=== PATIENT | male | born 1950 | race Caucasian/White ===

== ENCOUNTER 2017-05-19 06:24 | Inpatient (IN) ==
[~2017-05-19 06:24] MED LIST: Vancomycin 1,000 MG, Sodium Chloride IRRigation 1,000 ML IR ONE
[2017-05-19] MEDS ORDERED: Albuterol 2.5 MG/3 ML NEBULIZER IH ONE ×2 (06:42→12:34)
[2017-05-19] MEDS ORDERED: CeFAZolin Syr 2,000MG/20 ML 2,000 MG/20 ML SYRINGE IVPB ONE ×2 (06:42→06:53)
[2017-05-19] MEDS ORDERED: Plasma-Lyte A (PH 7.4) 1,000 ML IVC SCH ×2 (06:45→12:45)
--- NOTE | 2017-05-19 06:57 | Anesthesia Evaluation PreOp ---
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 ) Anesthesia History: No Prior Anesthetic Complications, Past Anesthesia ( arthroscopy, bilateral knees, ORIF left hand, biopsy of spleen, inguinal hernia bilateral, bronchoscopy) Alcohol Use: rarely Drug use: none Medications and Allergies Colchicine [Colcrys] 0.6 mg PO AD 03/21/15 [History] Cyclobenzaprine [Flexeril] 5 mg PO Q8H PRN 03/21/15 [History] Ibuprofen [Motrin] 800 mg PO AD PRN 03/21/15 [History] Indomethacin [Indocin] 50 mg PO TID 03/21/15 [History] Lisinopril [Zestril] 40 mg PO DAILY 03/21/15 [History] Omeprazole [PriLOSEC] 40 mg PO DAILY 03/21/15 [History] Pravastatin Sodium [Pravachol] 20 mg PO DAILY 03/21/15 [History] Spironolactone [Aldactone] 50 mg PO DAILY PRN 03/21/15 [History] Zolpidem [Ambien] 5 mg PO HS PRN 03/21/15 [History] Allopurinol [Zyloprim 300 MG] 300 mg PO HS #30 tablet 09/16/15 [Rx] OxyCODONE/APAP 7.5/325 [Percocet 7.5/325 MG] 1 each PO TID 09/21/16 [History] 3 Allergy/AdvReac Type Severity Reaction Status Date / Time No Known Allergies Allergy Verified 05/10/17 15:36 - Meds/Allergy Pre-op Review Medications Reviewed: Yes Allergies Reviewed: Yes Beta Blockers on Current Med List: Yes If Beta Blockers taken, Date/Time (Last Dose taken): today 514 Anesthesia Results - Labs Laboratory Tests 05/02/17 05/16/17 07:51 16:30 Hgb 13.8 Hct 42.9 Plt Count 184 Sodium 137 Potassium 3.5 BUN 12 Creatinine 1.15 - Imaging Additional studies: stress: Impression: Pharmacologic stress ECG is negative for ischemia at level of heart rate achieved. Gated EF = 72%. Small sized, mild intensity, fixed basal inferior defect consistent with artifact. Pefusion imaging was negative for ischemia or prior infarct. Anesthesia Exam Selected Entries 05/19/17 06:41 Temperature 98.0 F Pulse Rate 66 Respiratory Rate 18 Blood Pressure 148/95 O2 Sat by Pulse Oximetry 96 Weight: 114kg NPO (# of Hours): 8 - HEENT Pupil (Motor): EOMI Mallampati: III Teeth: Edentulous Oral Opening: Less than or equal to 3 - COMPONENT TECHNICIAN LOC: Oriented COMPONENT TECHNICIAN Motor: Normal RUE, Normal LUE, Normal RLE, Normal LLE, Normal Face COMPONENT TECHNICIAN Sensory: Normal: RUE, LUE, RLE, LLE, Face - Cardiac Rhythm: Regular Murmur: None - Pulmonary Breath Sounds: bilateral Clear Respiratory Effort: Symmetrical Anesthesia Assess/Plan ASA Score: 3 Modified Sameer Scale for Level of Consciousness: Cooperative, oriented, and tranquil Anesthetic Plan: General Monitoring Plan: Standard Monitors, A-Line Recovery Plan: PACU (agrees to GA and a-line)
[2017-05-19] MEDS ORDERED: Heparin 1,000 UNITS/500 mL 500 ML ONE (07:09)
[2017-05-19] MEDS ORDERED: Heparin 1,000 UNITS/500 mL 1,500 ML ONE (07:09)
[2017-05-19] MEDS ORDERED: Vancomycin 1,000 MG VIAL ONE (07:09)
[2017-05-19] MEDS ORDERED: *HR* Phenylephrine 10 MG/ML VIAL ONE (07:15)
[2017-05-19] MEDS ORDERED: Lidocaine -MPF 2% 2 ML VIAL ONE ×2 (07:19→09:41)
[2017-05-19] MEDS ORDERED: *HR* Midazolam HCl 2 MG/2 ML VIAL ONE (07:19)
[2017-05-19] MEDS ORDERED: *HR* Propofol 200 MG/20 ML VIAL IVP ONE (07:19)
[2017-05-19] MEDS ORDERED: Dexamethasone 4 MG/ML VIAL ONE (07:19)
[2017-05-19] MEDS ORDERED: Ondansetron 4 MG/2 ML VIAL ONE (07:19)
[2017-05-19] MEDS ORDERED: *HR* Rocuronium Bromide 50 MG/5 ML VIAL ONE (07:19)
[2017-05-19] MEDS ORDERED: *HR* FentaNYL (PF) 100 MCG/2 ML VIAL ONE (07:19)
[2017-05-19] MEDS ORDERED: Isovue-300 150 ML INFUS..BTL IV ONE (07:27)
[2017-05-19] MEDS ORDERED: *HR* Remifentanil 2 MG VIAL IVP ONE (07:28)
--- NOTE | 2017-05-19 07:31 | History & Physical Report ---
Date of Encounter: 05/19/17 Time of Encounter: 07:25 24 Hour HP Update - Instructions Instructions: If the History and Physical is less than 30 days old and was completed prior to A.M. admission and or procedure and has NOT been updated on calendar day of procedure please complete this update prior to performing procedure. - Update Patient reports changes in Medical Condition: No Changes in examination, assessment, or condition: No Changes in Medication: No Preop tests/diagnostics Reviewed: Yes Surgery Remains Indicated: Yes Consent for Planned Operative Procedure(s) Verified: Yes - Pre-Operative Checklist Preoperative Checklist Indicated: Yes Prophylactic Antibiotic Ordered: Yes (vancomycin due to MRSA risk) Home Medications Include Beta Steve: Yes Beta Steve Taken Today (Day of Surgery): Yes Beta Steve Taken Yesterday (Day Prior to Surgery): Yes Is VTE Prophylaxis Indicated?: Yes
[2017-05-19] MEDS ORDERED: *HR* Succinylcholine 200 MG/10 ML VIAL IVP ONE (09:18)
[2017-05-19] MEDS ORDERED: EPHEDrine 50 MG/ML VIAL ONE (10:33)
[2017-05-19] MEDS ORDERED: *HR* Heparin 5,000 UNIT/ML VIAL ONE (10:55)
[2017-05-19] MEDS ORDERED: Heparin 1,000 UNITS/500 mL 1,000 ML ONE (11:12)
[2017-05-19] MEDS ORDERED: Neostigmine Methylsulfate 3 MG/3 ML SYRINGE ONE (12:06)
[2017-05-19] MEDS ORDERED: *HR* OxyCODONE/APAP 5/325 TABLET PO PRN (12:34)
[2017-05-19] MEDS ORDERED: *HR* Meperidine 25 MG/ML SYRINGE IVP PRN (12:34)
[2017-05-19] MEDS ORDERED: MORPHINE SUL Oral CONC 10 MG/0.5 ML ORAL.SYG SL PRN (12:34)
[2017-05-19] MEDS ORDERED: *HR* Promethazine 25 MG/ML VIAL IVP PRN (12:34)
[2017-05-19] MEDS ORDERED: Naloxone 0.4 MG/ML INJ IVP PRN ×2 (12:34→13:29)
[2017-05-19] MEDS ORDERED: *HR* OxyCODONE Immed Rel 5 MG TABLET PO PRN ×2 (12:34→13:29)
[2017-05-19] MEDS ORDERED: Ondansetron 4 MG/2 ML VIAL IVP ONE (12:34)
[2017-05-19] MEDS ORDERED: *HR* Labetalol 20 MG/4 ML SYRINGE IVP PRN ×2 (12:36→13:29)
--- NOTE | 2017-05-19 12:40 | Operative Note ---
Date of procedure: 05/19/17 Pre-op diagnosis: Abdominal Aortic Aneurysm Post-op diagnosis: same Procedure: 1. Introduction of catheter into the aorta via right common femoral artery. 2. Introduction of catheter into the aorta via left common femoral artery. 3. Right femoral vessel exposure for endograft placement. 4. Left femoral vessel exposure for endograft placement. 5. Endograft repair of abdominal aortic aneurysm with Cook Zenith graft and two docking limbs including radiologic supervision and interpretation. Complications: None Anesthesia: GETA Surgeon: Tello Lainez Was there an program services assistant present: Yes Director Cardiac: Ishan Valente Estimated blood loss (cc): 100 Specimen: None Condition: stable Disposition: PACU Procedure in Detail: Indications: The patient is a 66 year old male with a history of hypertension and hyperlipidemia. He was found to have an infrarenal abdominal aortic aneurysm. His anatomy is acceptable for endograft placement. Surgery is recommended to reduce his risk of rupture. Procedure: The patient was identified, brought to the operating room and placed in the supine position on the operating room table. After induction of general endotracheal anesthesia, the patient was cleaned and draped in normal sterile fashion. Oblique incisions were made over both groins sharply. Hemostasis was obtained with electrocautery. Using blunt and sharp and electrocautery dissection, the bilateral common, deep and superficial femoral arteries were dissected circumferentially and surrounded with Vesseloops. At this point, the patient received 5000 units of heparin intravenously and then bilateral femoral punctures with large-bore needles were performed. Bentson wires were advanced into the aorta under fluoroscopic view. Given the anatomy, the main body was selected to be the right side of the patient. The needles were exchanged for bilateral #8-Divehi sheaths and a long Pigtail catheter was advanced over the right wire into the aortic arch. The wire was replaced with a Lunderquist wire. The catheter was removed and repositioned in the suprarenal aorta via the left femoral artery. The main body was inserted over the Lunderquist wire with the contralateral limb being in the anterolateral position. An aortogram was then performed at the level of the renal artery. The graft was positioned just inferior to the renal arteries and the first 2 segments were deployed. Again an aortogram revealed adequate infrarenal placement. The graft was then further opened to the contralateral limb exposed. A final angiogram was performed confirming adequate infrarenal placement. The suprarenal stent was deployed in the usual fashion. The contralateral limb was then selected with a Bentson wire using a guiding catheter. Intragraft placement of the wire was confirmed by placing the pigtail and spinning it freely as well as injecting a small amount of contrast. An oblique view of the pelvis was performed with contrast to size the left extension limb. The left sheath was exchanged for the extension limb which was advanced under fluoroscopic view and positioned. It was then deployed. The introducer was removed. The remaining portion of the main body was deployed, the top cap was retrieved and the introducer was removed. An oblique view of the right pelvis was performed in a similar fashion to determine the length of the graft on the right. The graft extension was then advanced on the right and positioned in the usual fashion. Upon completion of the graft docking limb extension, a Coda balloon was then advanced into the graft proximal and distal endpoints as well as overlap were expanded with gentle pressure. The balloon was left in the suprarenal position and a Flush catheter was placed in the suprarenal aorta. A Flush completion angiogram revealed no evidence of an endoleak. Tension was applied to the Vesseloops in the groin. The bilateral sheaths were then removed. After confirming hemodynamic stability, the wires were then removed. The bilateral arteriotomies were repaired with a running 6-0 Prolene. Antibiotic irrigation was infused into the groin. Platelet rich and platelet poor plasma were infused into the incisions. The bilateral groins were closed with a single layer of 2-0 Vicryl followed by two layers of 3-0 Vicryl followed by a layer of 3-0 monocryl in the subcuticular layer. Sterile dressings were applied. The patient was then extubated and taken to the recovery room in stable condition. Device Sizes: 1. Main Body: [id number] 2. Left Limb: [id number] 2. Right Limb: [id number]
--- NOTE | 2017-05-19 13:21 | Anesthesia Evaluation Post Op ---
Date of Encounter: 05/19/17 Time of Encounter: 13:20 - Vital Signs Vital Signs: Vital Signs/O2 Sat, Most Current Temp Pulse Resp BP Pulse Ox 97.0 F L 55 16 137/88 95 05/19/17 13:01 05/19/17 13:11 05/19/17 13:11 05/19/17 13:11 05/19/17 13:11 - Lungs Lungs: Clear Ascult./Percussion - Airway Airway: Non-obstructed - Cardiovascular Regular Rate - Mental Status Mental Status: Alert & Oriented, Answers Appropriately - Pain Pain Scale: 3 Pain Scale used: Numeric (1 - 10) - Nausea Vomiting Nausea Vomiting: Not Present - Hydration Hydration: Tolerates oral liquids, Winchester catheter
[2017-05-19] MEDS ORDERED: Diclofenac Sodium 75 MG TABLET PO PRN (13:29)
[2017-05-19] MEDS ORDERED: *HR* HYDROcodone/Acet 5/325 mg TABLET PO PRN (13:29)
[2017-05-19] MEDS ORDERED: Acetaminophen 325 MG TABLET PO PRN (13:29)
[2017-05-19] MEDS ORDERED: 0.9 % Sodium Chloride 1,000 ML IVC SCH (13:29)
[2017-05-19] MEDS ORDERED: OXYCODONE Oral CONC 10 MG/0.5 ML ORAL.SYG SL PRN ×2 (13:29)
[2017-05-19] MEDS ORDERED: Ondansetron 4 MG/2 ML VIAL IVP PRN (13:29)
--- NOTE | 2017-05-19 14:16 | Operative Note ---
Date of procedure: 05/19/17 Pre-op diagnosis: Abdominal aortic aneurysm Post-op diagnosis: same Procedure: Endovascular repair of abdominal aortic aneurysm using Zenith Cook endovascular graft. The graft has 2 docking limb for a total of 3 component repair. Abdominal aortograms Bilateral femoral artery open exposure. Complications: None Anesthesia: GETA Surgeon: Tello Lainez Co-Surgeon: Ishan Valente Was there an assistant chief train dispatcher present: No Estimated blood loss (cc): 100 Specimen: None Condition: stable Disposition: PACU Procedure in Detail: History Mr. Dillon is a 66-year-old white male with an abdominal aortic aneurysm. The aneurysm has grown in size and it is propria to proceed now with endovascular repair. Procedure After informed consent was obtained the patient was taken to the operating room. General endotracheal anesthesia was established under arterial line pressure monitoring. The abdomen groin and upper thighs were sterilely prepped and draped. A timeout protocol was observed. The femoral arteries were then dissected simultaneously through oblique groin incisions. Dissection was carried down to reveal the common femoral artery which was then controlled with Vesseloops. 18-gauge needles were used to puncture the artery retrograde. The wire was inserted followed by an 8-Nauruan sheath and dilator. The dilator was removed and the sheath was aspirated and flushed. The marker pigtail catheter was placed up the right side and exchanged for the Lunderquist wire. The pigtail catheter was then placed up on the left side. The main body was selected and was a 28 x 125 mm Zenith device. This was placed via the right side. The suprarenal stent was placed and then the main body was opened to the point that the left-sided document limb was exposed. Attention was then directed to cannulating this left side. Appropriate maneuvers were performed to ensure correct placement. After this was done the left-sided component was placed and this was a 16 x 74 mm stent graft. After this was secured in position and attention was directed back to the right side. The deployment of the right side was completed. Then an Janki Rich was obtained to measure the length and location of the iliac bifurcation. A 16 x 90 device was then selected and placed on the right side. Following placement of that third component a Rojas balloon was inserted that was 32 mm in diameter and was gently inflated through the course of the endovascular stent graft to gently molded and expand the material to its appropriate diameter. With that done the pigtail catheter was reinserted and a formal aortogram was obtained. This demonstrated no endoleak's. The position of the graft was appropriate and preservation of both renal arteries and both iliac bifurcations was identified. With this done the sheaths were then removed. The puncture site at the femoral level were was closed using 6-0 Prolene suture. The clamps removed and pulsatile flow was restored to the lower extremities. Excellent Doppler signals and palpation of pulses were noted. The wound was irrigated and closed bilaterally with absorbable suture. Dry sterile dressings were applied. The patient was stable and was taken from the operating room to the recovery room in normal hemodynamic status.
[2017-05-19] MEDS: CeFAZolin Premix DUPLEX 2,000 MG/50 ML BAG IVPB SCH ×2 (15:32→23:57)
[2017-05-19] MEDS: *HR* Metoprolol 5 MG/5 ML VIAL IVP SCH ×2 (18:35→23:56)
[2017-05-19] MEDS: Ketorolac 15 MG/ML VIAL IVP SCH ×2 (18:36→23:56)
[2017-05-19] MEDS ORDERED: Mirtazapine 15 MG TABLET PO SCH (21:00)
[2017-05-20 04:17] LABS: BUN/Creatinine Ratio 10 (6-26); Blood Urea Nitrogen 11 mg/dL (8-23); Calcium 8.4 mg/dL (8.6-10.3); Carbon Dioxide 23 mEq/L (23-29); Chloride 106 mEq/L (98-107); Glucose 133 mg/dL (70-105); Osmolality,Calculated 285 (280-300); Potassium 3.6 mEq/L (3.5-5.1); Sodium 137 mEq/L (136-145); eGFR For African Americans > 60 (> 60); eGFR For Non-African Americans > 60 (> 60)
[2017-05-20 04:50] LABS: Basophils % 0.4 %; Hematocrit 36.1 % (37.5-50.1); Hemoglobin 11.7 g/dL (12.9-16.9); Immature Granulocytes % 0.3 % (0-4); Lymphocytes # 1.2 K/mcL (0.6-4.6); Lymphocytes % 12.5 %; Mean Corpuscular HGB Conc 32.4 g/dL (31.6-35.5); Mean Corpuscular Hemoglobin 29.5 pg (28.0-33.3); Mean Corpuscular Volume 91.2 fL (83.0-100.0); Mean Platelet Volume 9.5 fL (9.4-12.4); Monocytes # 0.9 K/mcL (0.0-1.3); Monocytes % 8.7 %; Neutrophils # 7.6 K/mcL (1.6-8.9); Platelet Count 140 K/mcL (140-400); Red Blood Count 3.96 M/mcL (4.19-5.50); Red Cell Distribution Width 13.2 % (11.5-14.5); Segmented Neutrophils % 78.1 %
[2017-05-20] MEDS: *HR* Metoprolol 5 MG/5 ML VIAL IVP SCH (05:51)
[2017-05-20] MEDS: Ketorolac 15 MG/ML VIAL IVP SCH ×2 (05:51→12:01)
[2017-05-20] MEDS ORDERED: *HR* Heparin 5,000 UNIT/ML VIAL SQ SCH ×2 (06:00)
--- NOTE | 2017-05-20 07:41 | Discharge Summary ---
Orders not resulted at time of discharge: Pending orders 05/18/17 13:40 Red Blood Cells [BBK] Routine Date of Encounter: 05/20/17 Time of Encounter: 07:40 - Discharge Diagnosis (1) AAA (abdominal aortic aneurysm) without rupture Priority: Primary Status: Chronic Comments: The patient is postoperative day #1 after endograft repair of his aneurysm. He is tolerating a diet. His incisions are healing and his pain is controlled. He will be discharged today. (2) Essential hypertension Priority: Secondary Status: Chronic (3) Mixed hyperlipidemia Priority: Secondary Status: Chronic (4) Acute blood loss anemia Priority: Secondary Status: Acute Comments: The patient has acute expected postoperative blood loss anemia. He is hemodynamically stable without evidence of ongoing blood loss. (5) Diffuse large B cell lymphoma Priority: Secondary Status: Chronic Qualifiers: Lymphoma site: unspecified region Qualified Code(s): C83.30 - Diffuse large B-cell lymphoma, unspecified site - Hospital Course Hospital course: Mr. Dillon is a 66 year old male admitted with an abdominal aortic aneurysm on . He underwent endograft repair of his aneurysm. He tolerated the procedure well and was discharged in stable condition on postoperative day #1 without complications. - Time Spent with Patient Total time spent providing and/or coordinating discharge services: - Discharge Medications Prescriptions: OxyCODONE/APAP 5/325 [Percocet 5/325 MG] 1 each PO Q6HR PRN 6 Days #24 tablet PRN Reason: POSTOPERATIVE PAIN Home Medications: Allopurinol [Zyloprim 100 MG] 100 mg PO DAILY 05/19/17 [History] Citalopram [CeleXA] 20 mg PO DAILY 05/19/17 [History] Cyclobenzaprine HCl 5 mg PO TID PRN 05/19/17 [History] Diclofenac Sodium [Voltaren] 75 mg PO BID PRN 05/19/17 [History] Ibuprofen 800 mg PO TID PRN 05/19/17 [History] Lisinopril [Zestril] 40 mg PO DAILY 05/19/17 [History] Metoprolol [Lopressor] 100 mg PO BID 05/19/17 [History] Mirtazapine 7.5 mg PO HS 05/19/17 [History] Omeprazole [PriLOSEC] 40 mg PO DAILY 05/19/17 [History] Pravastatin Sodium [Pravachol] 40 mg PO DAILY 05/19/17 [History] OxyCODONE/APAP 5/325 [Percocet 5/325 MG] 1 each PO Q6HR PRN 6 Days #24 tablet [Rx] Allergies/Adverse Reactions: 3 Allergy/AdvReac Type Severity Reaction Status Date / Time No Known Allergies Allergy Verified 05/19/17 07:21 Date of admission: 05/19/17 13:23 Primary care physician: Hafsa Lua CNP Procedure(s) Performed: Endograft repair of abdominal aortic aneurysm. Discharging clinician: Tello Lainez Anticipated date of discharge: 05/20/17 Exam Vital Signs, Last 4 Hours Temp Pulse Resp BP Pulse Ox 05/20/17 07:01 97.7 F 64 20 128/94 95 05/20/17 04:10 64 05/20/17 03:44 97.5 F L 74 20 146/91 95 General: Present: Conversant Cardiac: Present: Reg Rate and Rhythm Lungs: Present: Normal Breath Sounds Neuro: Present: No focal deficits noted Abdomen: Present: Soft, Non-tender. Absent: Masses Vascular: Present: Normal capillary refill, Pulse, normal, Surgical incisions ( no erythema, no drainage, no hematoma). Absent: Cyanosis, Edema Skin: Present: No rashes noted on visualized skin - Patient Status Disposition: Home, Self-Care Condition: Good Functional capacity at discharge: independent ambulation Overall status at discharge: patient is back to baseline - Discharge Instructions Instructions: Oxycodone/Acetaminophen (By mouth), Abdominal Aortic Aneurysm (DC ), Peripheral Vascular Disorders (DC) Follow Up With: Hafsa Lua CNP [Primary Care Provider] - 05/27/17 11:40 am Tello Lainez MD [Partnered Physician] - 06/28/17 1:10 pm Additional Instructions: MAY REMOVE BANDAGES AND SHOWER ON 05/21/17. NO TUB BATHS OR SWIMMING UNTIL 06/13/17. WASH WOUNDS GENTLY AND PAT TO DRY. APPLY DRY GAUZE TO GROIN WOUND DAILY FOR [address] LAINEZ AT [phone] WITH QUESTIONS OR CONCERNS. - Diet and Activity Activity: increase activity as tolerated Diet: advance to your usual diet - VTE Documentation of Mechanical Device: Intermittent pneumatic compression device
[2017-05-20] MEDS ORDERED: Metoprolol 100 MG TABLET PO SCH (09:00)
[2017-05-20] MEDS ORDERED: Lisinopril 20 MG TABLET PO SCH (09:00)
[2017-05-20 11:13] VITALS: BP 143/94
== END 2017-05-20 13:09 | disposition home or self-care (01) | DRG 269 ==
LOC: SAMDAY 06:24 → 2NNU 13:23
PROVIDERS: ADMIT Surgery; ATTEND Surgery

== ENCOUNTER 2018-09-18 17:36 | Inpatient (IN) ==
[2018-09-18] MEDS ORDERED: 0.9 % Sodium Chloride 1,000 ML IVC ONE (18:25)
[2018-09-18 19:08] LABS: Basophils % 0.4 %; Eosinophils # 0.2 K/mcL (0.0-0.6); Hematocrit 27.3 % (37.5-50.1); Hemoglobin 8.4 g/dL (12.9-16.9); Immature Granulocytes % 0.4 % (0-4); Lymphocytes # 0.4 K/mcL (0.6-4.6); Mean Corpuscular HGB Conc 30.8 g/dL (31.6-35.5); Mean Corpuscular Hemoglobin 27.8 pg (28.0-33.3); Mean Corpuscular Volume 90.4 fL (83.0-100.0); Mean Platelet Volume 9.6 fL (9.4-12.4); Monocytes # 0.9 K/mcL (0.0-1.3); Monocytes % 10.9 %; Neutrophils # 6.8 K/mcL (1.6-8.9); Platelet Count 286 K/mcL (140-400); Red Blood Count 3.02 M/mcL (4.19-5.50); Red Cell Distribution Width 15.7 % (11.5-14.5); Segmented Neutrophils % 81.3 %; White Blood Count 8.3 K/mcL (4.3-11.1)
[2018-09-18] MEDS ORDERED: Isovue-370 500 ML BOTTLE IVP ONE (19:12)
[2018-09-18 19:32] LABS: Troponin I 0.06 ng/mL (< 0.04)
[2018-09-18 19:38] LABS: BUN/Creatinine Ratio 15 (6-26); Blood Urea Nitrogen 15 mg/dL (8-23); Calcium 9.4 mg/dL (8.6-10.3); Carbon Dioxide 25 mEq/L (23-29); Chloride 96 mEq/L (98-107); Glucose 125 mg/dL (70-105); Osmolality,Calculated 278 (280-300); Potassium 3.8 mEq/L (3.5-5.1); Sodium 133 mEq/L (136-145); eGFR For African Americans > 60 (> 60); eGFR For Non-African Americans > 60 (> 60)
[2018-09-18] MEDS ORDERED: Naloxone 0.4 MG/ML INJ IVP PRN (22:55)
[2018-09-18] MEDS ORDERED: 0.9 % Sodium Chloride 1,000 ML IVC SCH (23:00)
[2018-09-19] MEDS ORDERED: *HR* OxyCODONE Immed Rel 5 MG TABLET PO ONE (01:13)
[2018-09-19 01:17] LABS: Hematocrit 26.4 % (37.5-50.1); Hemoglobin 8.1 g/dL (12.9-16.9); Mean Corpuscular HGB Conc 30.7 g/dL (31.6-35.5); Mean Corpuscular Hemoglobin 27.6 pg (28.0-33.3); Mean Corpuscular Volume 90.1 fL (83.0-100.0); Mean Platelet Volume 8.8 fL (9.4-12.4); Platelet Count 272 K/mcL (140-400); Red Blood Count 2.93 M/mcL (4.19-5.50); Red Cell Distribution Width 15.5 % (11.5-14.5); White Blood Count 8.4 K/mcL (4.3-11.1)
[2018-09-19 01:37] LABS: Alanine Aminotransferase 29 Units/L (7-52); Albumin 3.3 g/dL (3.5-5.7); Albumin/Globulin Ratio 0.9 (1.1-2.2); Alkaline Phosphatase 166 Units/L (34-104); Aspartate Amino Transferase 44 Units/L (13-39); BUN/Creatinine Ratio 14 (6-26); Bilirubin,Total 0.7 mg/dL (0.3-1.0); Blood Urea Nitrogen 14 mg/dL (8-23); Calcium 9.3 mg/dL (8.6-10.3); Carbon Dioxide 25 mEq/L (23-29); Chloride 96 mEq/L (98-107); Globulin 3.8 g/dL (2.4-3.5); Glucose 108 mg/dL (70-105); INR 1.4; Osmolality,Calculated 273 (280-300); Potassium 3.8 mEq/L (3.5-5.1); Prothrombin Time 16.4 Seconds (9.4-12.1); Sodium 131 mEq/L (136-145); Total Protein 7.1 g/dL (6.4-8.9); eGFR For African Americans > 60 (> 60); eGFR For Non-African Americans > 60 (> 60)
[2018-09-19 01:38] LABS: Activated Partial Thrombo Time 35.1 Seconds (26.0-36.0)
[2018-09-19] MEDS: Metoprolol XL (24 HR) Succ 50 MG TAB.ER.24H PO SCH (07:23)
[2018-09-19] MEDS: Sucralfate 1 GM TABLET PO SCH ×4 (07:23→21:56)
[2018-09-19] MEDS: *HR* OxyCODONE Immed Rel 5 MG TABLET PO PRN ×2 (07:24→19:28)
[2018-09-19] MEDS: Aspirin Enteric Coated 81 MG Tablet PO SCH (07:24)
[2018-09-19] MEDS: *HR* HYDROcodone/Acet 5/325 mg TABLET PO PRN (12:28)
[2018-09-19] MEDS ORDERED: 0.9 % Sodium Chloride 500 ML IVC ONE (13:28)
[2018-09-19] MEDS ORDERED: Perflutren Lipid Microsphere 1.3 ML in 0.9 % Sodium Chloride 8.7 ML IVP ONE (18:37)
[2018-09-19] MEDS: 0.9 % Sodium Chloride 1,000 ML IVC SCH (19:28)
[2018-09-20] MEDS: *HR* HYDROcodone/Acet 5/325 mg TABLET PO PRN ×2 (03:51→12:20)
[2018-09-20 05:27] LABS: Hematocrit 23.5 % (37.5-50.1); Hemoglobin 7.2 g/dL (12.9-16.9); Mean Corpuscular HGB Conc 30.6 g/dL (31.6-35.5); Mean Corpuscular Hemoglobin 27.3 pg (28.0-33.3); Platelet Count 278 K/mcL (140-400); Red Blood Count 2.64 M/mcL (4.19-5.50); Red Cell Distribution Width 15.9 % (11.5-14.5); White Blood Count 8.5 K/mcL (4.3-11.1)
[2018-09-20 05:45] LABS: BUN/Creatinine Ratio 14 (6-26); Blood Urea Nitrogen 13 mg/dL (8-23); Calcium 8.6 mg/dL (8.6-10.3); Carbon Dioxide 22 mEq/L (23-29); Chloride 98 mEq/L (98-107); Glucose 94 mg/dL (70-105); Osmolality,Calculated 272 (280-300); Potassium 3.7 mEq/L (3.5-5.1); Sodium 131 mEq/L (136-145); eGFR For African Americans > 60 (> 60); eGFR For Non-African Americans > 60 (> 60)
[2018-09-20 05:57] LABS: Thyroid Stimulating Hormone 3.199 mcIU/mL (0.340-5.600)
[2018-09-20] MEDS: Sucralfate 1 GM TABLET PO SCH ×4 (08:15→21:05)
[2018-09-20] MEDS: Metoprolol XL (24 HR) Succ 50 MG TAB.ER.24H PO SCH (08:15)
[2018-09-20] MEDS: Aspirin Enteric Coated 81 MG Tablet PO SCH (08:15)
[2018-09-20] MEDS: 0.9 % Sodium Chloride 1,000 ML IVC SCH ×2 (08:16→19:40)
[2018-09-20 16:23] LABS: Iron < 10 mcg/dL (65-175); Transferrin 121 mg/dL (203-362)
[2018-09-20] MEDS ORDERED: 0.9 % Sodium Chloride 250 ML ONE (16:28)
[2018-09-20] MEDS ORDERED: *HR* Metoprolol 5 MG/5 ML VIAL IVP ONE ×3 (22:08→22:44)
[2018-09-21] MEDS ORDERED: DilTIAZem 50 MG in 0.9 % Sodium Chloride 40 ML IVC SCH (00:15)
[2018-09-21 00:25] LABS: Basophils % 0.4 %; Eosinophils # 0.2 K/mcL (0.0-0.6); Eosinophils % 2.1 %; Hematocrit 27.8 % (37.5-50.1); Hemoglobin 8.7 g/dL (12.9-16.9); Immature Granulocytes % 0.5 % (0-4); Lymphocytes # 0.5 K/mcL (0.6-4.6); Lymphocytes % 4.6 %; Mean Corpuscular HGB Conc 31.3 g/dL (31.6-35.5); Mean Corpuscular Hemoglobin 28.2 pg (28.0-33.3); Mean Platelet Volume 9.1 fL (9.4-12.4); Monocytes # 1.1 K/mcL (0.0-1.3); Monocytes % 11.1 %; Platelet Count 306 K/mcL (140-400); Red Blood Count 3.09 M/mcL (4.19-5.50); Red Cell Distribution Width 15.8 % (11.5-14.5); Segmented Neutrophils % 81.3 %
[2018-09-21 00:28] LABS: Neutrophils # 8.1 K/mcL (1.6-8.9)
[2018-09-21 00:54] LABS: Platelet Estimate Normal (Normal)
[2018-09-21 02:45] LABS: Hematocrit 26.2 % (37.5-50.1); Hemoglobin 8.3 g/dL (12.9-16.9); Mean Corpuscular HGB Conc 31.7 g/dL (31.6-35.5); Mean Corpuscular Hemoglobin 28.1 pg (28.0-33.3); Mean Corpuscular Volume 88.8 fL (83.0-100.0); Mean Platelet Volume 8.9 fL (9.4-12.4); Platelet Count 294 K/mcL (140-400); Red Blood Count 2.95 M/mcL (4.19-5.50); Red Cell Distribution Width 15.7 % (11.5-14.5)
[2018-09-21 03:04] LABS: Alanine Aminotransferase 18 Units/L (7-52); Albumin 2.8 g/dL (3.5-5.7); Albumin/Globulin Ratio 0.8 (1.1-2.2); Alkaline Phosphatase 139 Units/L (34-104); Aspartate Amino Transferase 32 Units/L (13-39); BUN/Creatinine Ratio 14 (6-26); Bilirubin,Total 1.2 mg/dL (0.3-1.0); Blood Urea Nitrogen 12 mg/dL (8-23); Calcium 8.6 mg/dL (8.6-10.3); Carbon Dioxide 20 mEq/L (23-29); Chloride 99 mEq/L (98-107); Globulin 3.3 g/dL (2.4-3.5); Glucose 100 mg/dL (70-105); Magnesium 1.7 mg/dL (1.6-2.6); Osmolality,Calculated 272 (280-300); Phosphorous 2.9 mg/dL (2.7-4.5); Potassium 3.6 mEq/L (3.5-5.1); Sodium 131 mEq/L (136-145); Total Protein 6.1 g/dL (6.4-8.9); eGFR For African Americans > 60 (> 60); eGFR For Non-African Americans > 60 (> 60)
[2018-09-21 08:38] LABS: Ferritin 750 ng/mL (20-250)
[2018-09-21] MEDS: Aspirin Enteric Coated 81 MG Tablet PO SCH (08:44)
[2018-09-21] MEDS: Metoprolol XL (24 HR) Succ 50 MG TAB.ER.24H PO SCH (08:44)
[2018-09-21] MEDS: Sucralfate 1 GM TABLET PO SCH ×4 (08:44→21:07)
[2018-09-21] MEDS ORDERED: Metoprolol XL (24 HR) Succ 25 MG TAB.ER.24H PO ONE (13:00)
[2018-09-21] MEDS: *HR* OxyCODONE Immed Rel 5 MG TABLET PO PRN (21:06)
[2018-09-22] MEDS: Sucralfate 1 GM TABLET PO SCH ×4 (08:04→22:16)
[2018-09-22] MEDS: Aspirin Enteric Coated 81 MG Tablet PO SCH (08:04)
[2018-09-22] MEDS ORDERED: Metoprolol XL (24 HR) Succ 50 MG TAB.ER.24H PO SCH (09:00)
[2018-09-22 09:24] LABS: Hematocrit 25.6 % (37.5-50.1); Mean Corpuscular HGB Conc 31.3 g/dL (31.6-35.5); Mean Corpuscular Hemoglobin 28.1 pg (28.0-33.3); Mean Corpuscular Volume 89.8 fL (83.0-100.0); Mean Platelet Volume 8.7 fL (9.4-12.4); Platelet Count 273 K/mcL (140-400); Red Blood Count 2.85 M/mcL (4.19-5.50); Red Cell Distribution Width 15.8 % (11.5-14.5); White Blood Count 8.6 K/mcL (4.3-11.1)
[2018-09-22 09:42] LABS: Alanine Aminotransferase 17 Units/L (7-52); Albumin 2.7 g/dL (3.5-5.7); Albumin/Globulin Ratio 0.8 (1.1-2.2); Alkaline Phosphatase 138 Units/L (34-104); Aspartate Amino Transferase 32 Units/L (13-39); BUN/Creatinine Ratio 17 (6-26); Blood Urea Nitrogen 14 mg/dL (8-23); Calcium 8.7 mg/dL (8.6-10.3); Carbon Dioxide 21 mEq/L (23-29); Chloride 97 mEq/L (98-107); Globulin 3.4 g/dL (2.4-3.5); Glucose 102 mg/dL (70-105); Magnesium 1.6 mg/dL (1.6-2.6); Osmolality,Calculated 273 (280-300); Phosphorous 2.8 mg/dL (2.7-4.5); Potassium 3.3 mEq/L (3.5-5.1); Sodium 131 mEq/L (136-145); Total Protein 6.1 g/dL (6.4-8.9); eGFR For African Americans > 60 (> 60); eGFR For Non-African Americans > 60 (> 60)
[2018-09-22] MEDS ORDERED: Potassium Chloride 40 MEQ, Lidocaine 1% 2 ML in D5% in Water 500 ML IVPB ONE (13:06)
[2018-09-22] MEDS: Metoprolol XL (24 HR) Succ 50 MG TAB.ER.24H PO SCH (22:16)
[2018-09-23] MEDS: Metoprolol XL (24 HR) Succ 50 MG TAB.ER.24H PO SCH ×2 (08:07→21:07)
[2018-09-23] MEDS: Sucralfate 1 GM TABLET PO SCH ×4 (08:07→21:07)
[2018-09-23] MEDS: Aspirin Enteric Coated 81 MG Tablet PO SCH (08:07)
[2018-09-23 11:04] LABS: Hematocrit 27.2 % (37.5-50.1); Hemoglobin 8.6 g/dL (12.9-16.9); Mean Corpuscular HGB Conc 31.6 g/dL (31.6-35.5); Mean Corpuscular Hemoglobin 27.7 pg (28.0-33.3); Mean Corpuscular Volume 87.7 fL (83.0-100.0); Mean Platelet Volume 8.6 fL (9.4-12.4); Platelet Count 324 K/mcL (140-400); White Blood Count 9.6 K/mcL (4.3-11.1)
[2018-09-23 11:23] LABS: Alanine Aminotransferase 22 Units/L (7-52); Albumin/Globulin Ratio 0.9 (1.1-2.2); Alkaline Phosphatase 144 Units/L (34-104); Aspartate Amino Transferase 42 Units/L (13-39); BUN/Creatinine Ratio 16 (6-26); Bilirubin,Total 1.1 mg/dL (0.3-1.0); Blood Urea Nitrogen 14 mg/dL (8-23); Calcium 8.8 mg/dL (8.6-10.3); Carbon Dioxide 22 mEq/L (23-29); Chloride 94 mEq/L (98-107); Globulin 3.3 g/dL (2.4-3.5); Glucose 111 mg/dL (70-105); Magnesium 1.7 mg/dL (1.6-2.6); Osmolality,Calculated 267 (280-300); Phosphorous 2.5 mg/dL (2.7-4.5); Potassium 3.3 mEq/L (3.5-5.1); Sodium 128 mEq/L (136-145); Total Protein 6.3 g/dL (6.4-8.9); eGFR For African Americans > 60 (> 60); eGFR For Non-African Americans > 60 (> 60)
[2018-09-23] MEDS ORDERED: Potassium Chloride 40 MEQ, Lidocaine 1% 2 ML in D5% in Water 500 ML IVPB ONE (11:55)
[2018-09-23] MEDS ORDERED: 0.9 % Sodium Chloride 1,000 ML IVC SCH (12:00)
[2018-09-23] MEDS: *HR* HYDROcodone/Acet 5/325 mg TABLET PO PRN (13:41)
[2018-09-23 19:03] LABS: BUN/Creatinine Ratio 16 (6-26); Blood Urea Nitrogen 14 mg/dL (8-23); Calcium 8.6 mg/dL (8.6-10.3); Carbon Dioxide 22 mEq/L (23-29); Chloride 93 mEq/L (98-107); Glucose 113 mg/dL (70-105); Magnesium 1.8 mg/dL (1.6-2.6); Osmolality,Calculated 263 (280-300); Phosphorous 2.8 mg/dL (2.7-4.5); Potassium 3.6 mEq/L (3.5-5.1); Sodium 126 mEq/L (136-145); eGFR For African Americans > 60 (> 60); eGFR For Non-African Americans > 60 (> 60)
[2018-09-24] MEDS: Metoprolol XL (24 HR) Succ 50 MG TAB.ER.24H PO SCH ×2 (08:09→19:56)
[2018-09-24] MEDS: Aspirin Enteric Coated 81 MG Tablet PO SCH (08:09)
[2018-09-24] MEDS: Sucralfate 1 GM TABLET PO SCH ×4 (08:09→22:37)
[2018-09-24] MEDS: *HR* HYDROcodone/Acet 5/325 mg TABLET PO PRN (09:22)
[2018-09-24 09:28] LABS: Hematocrit 26.6 % (37.5-50.1); Hemoglobin 8.3 g/dL (12.9-16.9); Mean Corpuscular HGB Conc 31.2 g/dL (31.6-35.5); Mean Corpuscular Hemoglobin 27.9 pg (28.0-33.3); Mean Corpuscular Volume 89.3 fL (83.0-100.0); Mean Platelet Volume 9.2 fL (9.4-12.4); Platelet Count 326 K/mcL (140-400); Red Blood Count 2.98 M/mcL (4.19-5.50); Red Cell Distribution Width 15.9 % (11.5-14.5); White Blood Count 8.5 K/mcL (4.3-11.1)
[2018-09-24 09:43] LABS: Alanine Aminotransferase 23 Units/L (7-52); Albumin 2.8 g/dL (3.5-5.7); Albumin/Globulin Ratio 0.8 (1.1-2.2); Alkaline Phosphatase 157 Units/L (34-104); Aspartate Amino Transferase 41 Units/L (13-39); BUN/Creatinine Ratio 16 (6-26); Bilirubin,Total 1.2 mg/dL (0.3-1.0); Blood Urea Nitrogen 14 mg/dL (8-23); Calcium 8.7 mg/dL (8.6-10.3); Carbon Dioxide 22 mEq/L (23-29); Chloride 92 mEq/L (98-107); Globulin 3.5 g/dL (2.4-3.5); Glucose 105 mg/dL (70-105); Magnesium 1.7 mg/dL (1.6-2.6); Osmolality,Calculated 263 (280-300); Phosphorous 2.8 mg/dL (2.7-4.5); Potassium 3.4 mEq/L (3.5-5.1); Sodium 126 mEq/L (136-145); Total Protein 6.3 g/dL (6.4-8.9); eGFR For African Americans > 60 (> 60); eGFR For Non-African Americans > 60 (> 60)
[2018-09-24] MEDS ORDERED: Potassium Chloride 40 MEQ, Lidocaine 1% 2 ML in D5% in Water 500 ML IVPB ONE (11:13)
[2018-09-24 13:48] LABS: Potassium 3.5 mEq/L (3.5-5.1)
[2018-09-24 17:04] LABS: Blood Urea Nitrogen 15 mg/dL (8-23); Calcium 8.6 mg/dL (8.6-10.3); Carbon Dioxide 23 mEq/L (23-29); Chloride 93 mEq/L (98-107); Glucose 122 mg/dL (70-105); Magnesium 2.3 mg/dL (1.6-2.6); Osmolality,Calculated 260 (280-300); Phosphorous 2.5 mg/dL (2.7-4.5); Sodium 124 mEq/L (136-145)
[2018-09-24 17:17] LABS: Thyroid Stimulating Hormone 4.855 mcIU/mL (0.340-5.600)
[2018-09-24 17:25] LABS: BUN/Creatinine Ratio 18 (6-26); eGFR For African Americans > 60 (> 60); eGFR For Non-African Americans > 60 (> 60)
[2018-09-24 17:33] LABS: Folate 7.2 ng/mL (3.0-16.0)
[2018-09-24 17:34] LABS: Vitamin B12 > 1500 pg/mL (250-1100)
[2018-09-24] MEDS ORDERED: Tolvaptan 15 MG TABLET PO ONE (19:32)
[2018-09-24 23:00] LABS: Potassium,Urine 56.8 mEq/L
[2018-09-25] MEDS: *HR* OxyCODONE Immed Rel 5 MG TABLET PO PRN (03:53)
[2018-09-25] MEDS: Aspirin Enteric Coated 81 MG Tablet PO SCH (08:04)
[2018-09-25] MEDS: Metoprolol XL (24 HR) Succ 50 MG TAB.ER.24H PO SCH ×2 (08:04→20:40)
[2018-09-25] MEDS: Sucralfate 1 GM TABLET PO SCH ×4 (08:04→20:40)
[2018-09-25 09:47] LABS: Alanine Aminotransferase 23 Units/L (7-52); Albumin 2.8 g/dL (3.5-5.7); Albumin/Globulin Ratio 0.8 (1.1-2.2); Alkaline Phosphatase 163 Units/L (34-104); Aspartate Amino Transferase 41 Units/L (13-39); BUN/Creatinine Ratio 14 (6-26); Bilirubin,Total 1.1 mg/dL (0.3-1.0); Blood Urea Nitrogen 12 mg/dL (8-23); Calcium 8.9 mg/dL (8.6-10.3); Carbon Dioxide 22 mEq/L (23-29); Chloride 96 mEq/L (98-107); Globulin 3.5 g/dL (2.4-3.5); Glucose 108 mg/dL (70-105); Magnesium 1.9 mg/dL (1.6-2.6); Osmolality,Calculated 270 (280-300); Phosphorous 2.8 mg/dL (2.7-4.5); Potassium 4.2 mEq/L (3.5-5.1); Sodium 130 mEq/L (136-145); Total Protein 6.3 g/dL (6.4-8.9); eGFR For African Americans > 60 (> 60); eGFR For Non-African Americans > 60 (> 60)
[2018-09-25 09:50] LABS: Hematocrit 27.4 % (37.5-50.1); Hemoglobin 8.8 g/dL (12.9-16.9); Mean Corpuscular HGB Conc 32.1 g/dL (31.6-35.5); Mean Corpuscular Hemoglobin 27.6 pg (28.0-33.3); Mean Corpuscular Volume 85.9 fL (83.0-100.0); Mean Platelet Volume 9.3 fL (9.4-12.4); Platelet Count 327 K/mcL (140-400); Red Blood Count 3.19 M/mcL (4.19-5.50); Red Cell Distribution Width 15.9 % (11.5-14.5); White Blood Count 9.7 K/mcL (4.3-11.1)
[2018-09-25] MEDS: *HR* HYDROcodone/Acet 5/325 mg TABLET PO PRN (20:40)
[2018-09-25] MEDS ORDERED: Tolvaptan 15 MG TABLET PO ONE (22:18)
[2018-09-26 07:12] VITALS: BP 111/78
[2018-09-26] MEDS: Sucralfate 1 GM TABLET PO SCH (09:15)
[2018-09-26] MEDS: Aspirin Enteric Coated 81 MG Tablet PO SCH (09:15)
[2018-09-26] MEDS: Metoprolol XL (24 HR) Succ 50 MG TAB.ER.24H PO SCH (09:15)
== END 2018-09-26 11:21 | disposition home or self-care (01) | DRG 180 ==
LOC: EMEROOARM 17:36 → CDU 17:36 → SUATTDRO 23:23 → CDU 09-19 00:40 → 2ANU 09-21 13:43
PROVIDERS: ADMIT Internal Medicine; ATTEND Internal Medicine